=== PATIENT | female | born 1960 | race Caucasian/White ===

== ENCOUNTER 2017-03-15 07:45 | Emergency (ER) | payer OTHER ==
[2017-03-15 07:59] VITALS: BP 122/72
[2017-03-15] MEDS ORDERED: Albuterol HFA INHALER* 8 gm MDI INH ONE (08:17)
--- NOTE | 2017-03-15 08:43 | RAD ---
HISTORY: Cough COMPARISONS: None VIEWS: 4: Frontal dual-energy and lateral views of the chest. FINDINGS: CARDIOMEDIASTINAL SILHOUETTE: The cardiomediastinal silhouette is normal. MOHAMUD: The mohamud are normal. PLEURA: The costophrenic angles are sharp. No pleural abnormalities are noted. LUNG PARENCHYMA: The lungs are clear. ABDOMEN: The upper abdomen is clear. There is no subphrenic gas. BONES AND SOFT TISSUES: No bone or soft tissue abnormalities are noted. OTHER: None. IMPRESSION: NO ACTIVE CARDIOPULMONARY DISEASE.
--- NOTE | 2017-03-15 08:58 | UC ---
Flakito Vazquez Benjamin, scribed for Katerina Koo MD on 03/15/17 at 0817 . Respiratory Complaint HPI - HPI Summary HPI Summary: 56yo female c/o presents c/o cough since aprox 25 January. No chacorta fever, but hot and cold at night. + very tired. No GI Issues. + sinus pressure, can't taste very well since sx started. No rash. Cough occas productive, usually clear but occasional green phlegm. Sx started out while traveling overseas to [place]. Pt travelled to [place] from 01/25-02/08 and felt like her travel had made her sick since she has been on a plane for over 24 hours and used lots of public transportation during her time of travel. Pt also has some friends who have cats with cat dandruff. P doesnt report any rash. No known hx of asthma, and no pets at home. Pt mother recently , and she currently is cleaning out her mother's house, and as such has been exposed to lots of dirt, dust, and molds. - History of Current Complaint Chief Complaint: UCRespiratory Stated Complaint: RESP ISSUE Time Seen by Provider: 03/15/17 08:03 Hx Obtained From: Patient Hx Last Menstrual Period: Ended last week Onset/Duration: Gradual Onset, Lasting Weeks - since 01/25/17, Still Present Timing: Constant Severity Initially: Mild Severity Currently: Mild Pain Intensity: 0 Pain Scale Used: 0-10 Numeric Character: Cough: Nonproductive - Allergies/Home Medications Allergies/Adverse Reactions: Allergies Allergy/AdvReac Type Severity Reaction Status Date / Time Shellfish Allergy Allergy Hives Verified 01/26/16 09:33 Sulfa drugs Allergy Hives Uncoded 01/26/16 09:33 Home Medications: Home Medications Hzohlzx-Aukwbmnjnhmww-Xaiybozy [Excedrin Migraine 250-250-65 mg] 03/15/17 [ History] PMH/Surg Hx/FS Hx/Imm Hx Previously Healthy: Yes Respiratory History: Other Other Respiratory History: Denies Asthma. - Surgical History Surgical History: Yes Surgery Procedure, Year, and Place: Bunionectomoy - Family History Known Family History: Negative: Cardiac Disease, Hypertension, Diabetes - Social History Occupation: Retired Lives: Alone Alcohol Use: None Substance Use Type: None Smoking Status (MU): Never Smoked Tobacco Review of Systems Constitutional: Other - SEE HPI All Other Systems Reviewed And Are Negative: Yes Physical Exam Triage Information Reviewed: Yes Appearance: Well-Appearing, No Pain Distress, Well-Nourished Vital Signs: Initial Vital Signs Temp 98.5 F 03/15/17 07:51 Pulse 88 03/15/17 07:51 Resp 16 03/15/17 07:51 BP 122/72 03/15/17 07:51 Pulse Ox 97 03/15/17 07:51 Vital Signs Reviewed: Yes Eye Exam: Normal ENT Exam: Normal Neck exam: Normal Respiratory: Positive: Crackles - at the bases, Wheezing - Expiratory Cardiovascular: Positive: RRR, No Murmur, Pulses Normal. Negative: Tachycardia Abdomen Description: Positive: Nontender, No Organomegaly, Soft Bowel Sounds: Positive: Present Musculoskeletal: Positive: Strength Intact Neurological: Positive: Muscle Tone Normal Psychological: Positive: Age Appropriate Behavior Skin Exam: Normal Skin: Negative: rashes UC Diagnostic Evaluation - Laboratory O2 Sat by Pulse Oximetry: 97 - Radiology Xray Interpretation: No Acute Changes - CHEST XR: NAD. Radiology Interpretation Completed By: Radiologist Re-Evaluation - Re-Evaluation First Eval Re-Evaluation Time: 09:00 Comment: Reviewed pts imaging result with the pt. Also discussed course of treatment and disposition. Respiratory Course/Dx - Course Course Of Treatment: Reviewed pts medication and allergy lists. Blood pressure noted. Reviewed CXR and CXR report. D/w pt f/u and coa, including pcp f/u ( [facility] [place] # given). Rx albuterol, doxycycline. Questions answered to the best of my ability. - Differential Dx/Diagnosis Provider Diagnoses: Bronchitis. Wheezing Discharge - Discharge Plan Condition: Stable Disposition: HOME Prescriptions: Albuterol HFA INHALER* [Ventolin HFA Inhaler*] 1 - 2 puff INH Q4H PRN #1 mdi PRN Reason: Wheezing DOXYcycline CAP(*) [DOXYcycline 100MG CAP(*)] 100 mg PO BID #20 cap Patient Education Materials: Acute Bronchitis (ED), Bronchospasm (ED) Referrals: No Primary Care Phys,NOPCP [Primary Care Provider] - [facility] REFERRAL [Outside] Additional Instructions: Please follow up with a primary care provider if possible in the next couple weeks. Seek medical attention for worse or new problems in the meantime. Hepa filter mask if possible. Hepa filter air filter will be helpful. The documentation as recorded by the rahulibFlakito rebollar Benjamin accurately reflects the service I personally performed and the decisions made by me, Katerina Koo MD.
== END 2017-03-15 09:17 | disposition home or self-care (01) ==
LOC: UCEAST 07:45
DX: J40 Bronchitis, not specified as acute or chronic (principal); R06.2 Wheezing; Z88.2 Allergy status to sulfonamides; Z91.013 Allergy to seafood
CPT/HCPCS: 71020; 99213; A9270-GY; G0463

== ENCOUNTER → 2018-04-26 13:52 | Day surgery (SDC) | payer OTHER ==
[~2018-04-26 13:52] MED LIST: Acetaminophen TAB* 325 MG PO PRN; Buffered Lidocaine 0.9% SYRIN* 5 ML/SYR SYRINGE INTRADERM ONE; Dexamethasone IV* 4 MG/ML 1 ML (4 MG) IV SLOW PU ONE; Dexamethasone IV* 4 MG/ML 1 ML (4 MG) ONE; DiMENhydriNATE IV* 50 MG/ML VIAL IV PUSH PRN; Famotidine IV* 10 MG/ML 2 ML (20 mg) IV ONE; Famotidine IV* 10 MG/ML 2 ML (20 mg) ONE; Gelatin ADSORBABLE (OPHTH)* OPHTH.FILM ONE; Gelfoam 12-7 ADSORBABL SPONGE* 1 EA SPONGE ONE; HYDROcodone/ACETAMIN 5-325 MG* 1 TAB PO PRN; Ibuprofen TAB* 600 MG PO PRN; Lidocaine 2% EPI 1:200000 MPF*10-20 ML VIAL ONE; Lidocaine 2% PF * 5 ML VIAL ONE; Midazolam* 1 MG/ML 2 ML VIAL (2 MG) ONE; Naloxone* 0.4 MG/ML 1 ML VIAL IV PRN; Ondansetron INJ* 2 MG/ML VIAL IV PRN; Ondansetron INJ* 2 MG/ML VIAL ONE; Oxymetazoline 0.05% NASAL SPR* 15 ML BTL ONE; Phenylephrine IV* 40 MCG/ML 10 ML SYRINGE ONE; Propofol* 10 MG/ML 20 ML BTL IV PUSH ONE; Succinylcholine* 20 MG/ML 10 ML VIAL ONE; fentaNYL* 50 MCG/ML 2 ML VIAL (100 MCG VIAL) IV PRN; fentaNYL* 50 MCG/ML 2 ML VIAL (100 MCG VIAL) ONE
[2018-04-26 18:18] VITALS: BP 142/98
--- NOTE | 2018-04-27 09:03 | OP ---
DATE OF OPERATION: 04/26/18 - [facility] DATE OF : 58. SURGEON: Jhonathan Mays MD. PRE-OP DIAGNOSIS: Chronic sinusitis and nasal polyps. POST-OP DIAGNOSIS: Chronic sinusitis and nasal polyps. OPERATIVE PROCEDURE: Bilateral video endoscopic maxillary antrostomy and anterior and posterior ethmoidectomy bilaterally. BRIEF HISTORY: This 57-year-old female with chronic sinusitis, trials of nasal steroids and oral steroids with oral antibiotics were not successful. DESCRIPTION OF PROCEDURE: The patient was taken to the operating room. General anesthetic was given. The patient was intubated. Nose was decongested with Afrin- placed pledgets. Subsequently, 0-degree telescope 30-degree telescope, and other endoscopic sinus surgery instruments including the microshaver were utilized. We initially turned our attention to the right side. Large polyps were noted and it was infiltrated with 2% lidocaine with epinephrine into the uncinate region, the middle turbinate, and the lateral nasal wall and into the ethmoidal bulla area. Same was done on the opposite side. We turned our attention to the right side by removing the polyp then subsequently identifying the uncinate process peeling out anteriorly and microshaving it away. The antrum was then enlarged. Copious amounts of polypoidal mucosal abnormalities were removed in the maxillary sinus. Ethmoidectomy was carried out entering the bulla and then subsequently posteriorly through the ground lamella towards the front face of the skull and then coursing superiorly to the nasofrontal duct area and then laterally towards the lamina papyracea resecting out as many of the ethmoid cells as possible. The area was then packed with Gelfilm and Gelfoam and this was soaked with Kenalog. Then, we turned out attention to the left side. The area again at the uncinate process was peeled out. Polypoidal mucosa was removed and microshaver was used to resect out the uncinate process. The antrostomy was then further enlarged. Again, polyps within the antrum was removed. Then, we turned our attention to the ethmoidal bulla resecting it completely and then coursing through the ground lamella posteriorly along the skull base and is coursing superiorly from back to front and laterally towards the lamina papyracea on the left side. Once both sides were completely resected out adequately enough, the area was packed with Gelfilm and Gelfoam spacer, which was soaked with Kenalog. The patient was then awakened, extubated, and sent to Recovery in stable condition. Instrument and sponge counts were correct. Blood loss was minimal. Incidental note should be made to the patient and anesthesiologist, that the patient was a difficult intubation. [id number]/[facility] #: [id number] MTDD
== END | disposition home or self-care (01) ==
LOC: OR 13:52
PROVIDERS: ATTEND Otolaryngology
DX: J32.8 Other chronic sinusitis (principal); G43.909 Migraine, unspecified, not intractable, without status migrainosus
CPT/HCPCS: 88305; A9270-GY; J0330; J1100; J2250; J2405; J2704; J3010

== ENCOUNTER 2018-12-31 20:58 | Emergency (ER) | payer OTHER ==
[2018-12-31 21:11] VITALS: BP 148/83
--- NOTE | 2018-12-31 21:26 | UC ---
Knee Pain HPI - HPI Summary HPI Summary: Patient is 58 year old female, who present today to the urgent care with right knee pain after injuring it at 5 PM today. She reports that she lost balance and felt crackling sound to her knee and fell down in her garden. Denies any other injury. Was able to be her weight but it is very painful. She took ibuprofen for pain. She denies any other symptoms - History of Current Complaint Chief Complaint: UCLowerExtremity Stated Complaint: KNEE INJURY Time Seen by Provider: 12/31/18 21:04 Hx Obtained From: Patient Hx Last Menstrual Period: Ended last week Pain Intensity: 6 - Allergies/Home Medications Allergies/Adverse Reactions: Allergies Allergy/AdvReac Type Severity Reaction Status Date / Time shellfish derived Allergy Hives Verified 12/31/18 21:11 Sulfa drugs Allergy Hives Uncoded 04/26/18 14:31 PMH/Surg Hx/FS Hx/Imm Hx - Additional Past Medical History Additional PMH: Past Medical History : None Past Surgical History: No Past History of Procedure Family History : Noncontributory. Social History : No alcohol, non smoker, no drug use. Previously Healthy: Yes - Surgical History Surgical History: Yes Surgery Procedure, Year, and Place: LEFT AND RIGHT Bunionectomy - Family History Known Family History: Negative: Cardiac Disease, Hypertension, Diabetes - Social History Alcohol Use: None Substance Use Type: None Smoking Status (MU): Never Smoked Tobacco Have You Smoked in the Last Year: No Review of Systems All Other Systems Reviewed And Are Negative: Yes Constitutional: Positive: Negative Skin: Positive: Negative Eyes: Positive: Negative ENT: Positive: Negative Respiratory: Positive: Negative Cardiovascular: Positive: Negative Gastrointestinal: Positive: Negative Genitourinary: Positive: Negative Motor: Positive: Negative Neurovascular: Positive: Negative Musculoskeletal: Positive: Arthralgia - Right knee, Decreased ROM - Right knee Neurological: Positive: Negative Psychological: Positive: Negative Is Patient Immunocompromised?: No Physical Exam - Summary Physical Exam Summary: Vital Signs Reviewed: Yes A+Ox3, no distress Eyes: Conjunctiva Clear ENT: Hearing grossly normal neck: supple Respiratory: Positive: No respiratory distress, No accessory muscle use Cardiovascular: skin color reflect adequate perfusion Neurological: Positive: Alert, ambulatory without difficulty Psychological: Positive: Normal Response To Family Skin: Positive: no rash, no ecchymosis Right Knee: Gait: antalgic gait Insp/Palp: No deformity. No effusion of the right knee. There is significant tenderness to medial joint line. There is tenderness to the patellar facet Strength: Quadriceps 5/5 , No hamstring tightness. ROM: full, with pain 0-130. Special Tests: e . Patellar grind test is negative. Anterior drawer test is some laxity. Posterior drawer test is negative. Sherine test with laxity. Valgus stress test at 0 and 30 degrees flexion with pain without any laxity. varus stress test at 0 and 30 degrees flexion is negative. Carlos's test is painful. Triage Information Reviewed: Yes Vital Signs: Initial Vital Signs Temp 98.7 F 12/31/18 21: Pulse 95 12/31/18 21:03 Resp 12 12/31/18 21:03 BP 148/83 12/31/18 21: Pulse Ox 99 12/31/18 21:03 Vital Signs Reviewed: Yes Diagnostics - Radiology No standard instances Radiology Interpretation Completed By: ED Physician - X-rays of right knee:No fracture. Minimal arthritis Knee Pain Course/Dx - Course Course Of Treatment: During the visit today, we obtained x-rays of right knee : No fracture. Minimal arthritis X-rays will be read tomorrow morning by radiologist and if anything different, somebody will call you with the findings and further plan. We discussed the findings consistent with MCL strain and possibility of ACL injury cannot be completely ruled out but she does not have any effusion . Follow up with orthopedics in 2-3 days Patient expressed understanding . - Differential Dx/Diagnosis Provider Diagnosis: Right knee pain, Grade 1 injury of medial collateral ligament of right knee Discharge - Sign-Out/Discharge Documenting (check all that apply): Patient Departure All imaging exams completed and their final reports reviewed: No - Discharge Plan Condition: Stable Disposition: HOME Patient Education Materials: Knee Sprain (ED) Referrals: Jennifer Ferro MD [Primary Care Provider] - Lilian Harris MD [Medical Doctor] - Additional Instructions: Start using the knee immobilizer Ice 15 minutes at a time, 3-4 times a day Ibuprofen as needed, 600 mg up to 3 times a day with food Gentle range of motion exercises Follow up with orthopedics in 2 days. Patients blood pressure slightly high in Urgent care today , plan follow up with PCP for better control Your x-rays were done after 6 PM and no official radiology read is available at this time . X-rays will be read tomorrow morning by radiologist and if anything different, somebody will call you with the findings and further plan. Return to Urgent care / ER if symptoms get worse. - Billing Disposition and Condition Condition: STABLE Disposition: Home
--- NOTE | 2019-01-01 08:12 | UC ---
- EKG/XRAY/CT Xray Comments: wet read correct Course/Dx - Diagnoses Provider Diagnoses: Right knee pain, Grade 1 injury of medial collateral ligament of right knee Discharge - Sign-Out/Discharge Documenting (check all that apply): Post-Discharge Follow Up All imaging exams completed and their final reports reviewed: Yes - Discharge Plan Condition: Stable Disposition: HOME Patient Education Materials: Knee Sprain (ED) Referrals: Jennifer Ferro MD [Primary Care Provider] - Lilian Harris MD [Medical Doctor] - Additional Instructions: Start using the knee immobilizer Ice 15 minutes at a time, 3-4 times a day Ibuprofen as needed, 600 mg up to 3 times a day with food Gentle range of motion exercises Follow up with orthopedics in 2 days. Patients blood pressure slightly high in Urgent care today , plan follow up with PCP for better control Your x-rays were done after 6 PM and no official radiology read is available at this time . X-rays will be read tomorrow morning by radiologist and if anything different, somebody will call you with the findings and further plan. Return to Urgent care / ER if symptoms get worse. - Billing Disposition and Condition Condition: STABLE Disposition: Home
== END 2018-12-31 22:28 | disposition home or self-care (01) ==
LOC: UCEAST 20:58
DX: S83.411A Sprain of medial collateral ligament of right knee, initial encounter (principal); W19.XXXA Unspecified fall, initial encounter; Y92.007 Garden or yard of unspecified non-institutional (private) residence as the place of occurrence of the external cause
CPT/HCPCS: 99212; G0463

== ENCOUNTER → 2019-03-08 06:14 | Day surgery (SDC) | payer OTHER ==
--- NOTE | 2019-03-05 17:04 | HP ---
AMENDED REPORT NOW INCLUDES DESIGNATED COSIGNER AND DATE OF ADMISSION PREOPERATIVE HISTORY AND PHYSICAL: DATE OF ADMISSION: 03/09/19 ATTENDING PROVIDER: Dr. Harris * (DICTATED BY ZOEY WOLF) CHIEF COMPLAINT: Right knee pain. HISTORY OF PRESENT ILLNESS: This is a 58-year-old female who suffered a fall on 12/31/18. When she fell, she went sideways and felt a crack in her right knee. Since then, she has had between 2/10 and 6/10 pain in the right knee with swelling. She has tried bracing, anti-inflammatories, and rest without significant relief of her discomfort. She has tenderness and pain along the medial joint line that is increased with twisting, pivoting, and bending. She is unable to take part in her normal daily activities without severe pain. An MRI was ordered which showed contusions of the posterior tibial plateau and suspicion for a radial tear in the posterior horn of the lateral meniscus at the posterior root. She is seeking surgical intervention at this time with Dr. Harris. PAST MEDICAL HISTORY: Hypercholesterolemia. PAST SURGICAL HISTORY: Bilateral bunionectomy and sinus surgery. She denies anesthetic complications with these procedures, but says that Dr. Wick says she has a "narrow throat" when intubating. CURRENT MEDICATIONS: 1. Multivitamin daily by mouth. 2. Flaxseed oil supplement daily. ALLERGIES: SULFA DRUGS caused a rash and itching. FAMILY HISTORY: Hypertension in her father, but no cancer or diabetes. SOCIAL HISTORY: She lives alone and will be staying with a friend postoperatively for care. She is a retired investment executive. She denies tobacco, alcohol, or recreational drug use and she is normally very active. REVIEW OF SYSTEMS: Fourteen systems were reviewed with the patient today and are positive for her right knee pain, but negative for fever, chills, chest pain or shortness of breath, nausea, vomiting, headache, or dizziness. All other systems are reported negative as well as no history of DVT. PHYSICAL EXAMINATION GENERAL: She is a well-developed, well-nourished female, seated in an exam chair, in no acute distress, with appropriate affect. VITAL SIGNS: Height 60 inches, weight 165 pounds. Blood pressure 132/83, pulse is 74. HEENT: Normocephalic, atraumatic. Hearing and vision are grossly intact, with extraocular movements intact. She does wear corrective lenses. NECK: The trachea is midline and symmetrical. LUNGS: Clear to auscultation. No wheezes, rales, or rhonchi appreciated. CARDIO: Regular rate and rhythm. Normal S1, S2. No murmurs, rubs, or gallops noted. ABDOMEN: Nondistended, nontender, with bowel sounds present. GENITOURINARY: Deferred. MUSCULOSKELETAL: Right lower extremity: Skin is pink, dry, and intact without abrasions or open wounds. There is a moderate effusion of the knee with tenderness along the MCL and medial joint line. The patient performs a straight leg raise with extension at the knee to 5 degrees and flexion to 120 with pain. She has a positive Apley's and Carlos's without varus or valgus instability. Negative Sherine's, but there is some guarding. No distal edema is appreciated. She has 5/5 strength against resistance in 4 planes in the right ankle with intact sensation and a 2+ dorsalis pedis pulse. IMAGING: MRI suspicious for radial tear in the posterior horn of the lateral meniscus with clinical correlation on physical exam. ASSESSMENT: Right knee pain with meniscus tear. PLAN: Right knee arthroscopy with partial meniscectomy and possible chondroplasty, synovectomy, and plica excision with Dr. Harris. The patient's questions were answered and she would like to proceed. She will follow up postoperatively in our office and pain medications will be dispensed upon discharge. ZOEY WOLF [id number]/[facility] #: [id number] MATT
[~2019-03-08 06:14] MED LIST changes: -Acetaminophen TAB* 325 MG PO PRN; -Buffered Lidocaine 0.9% SYRIN* 5 ML/SYR SYRINGE INTRADERM ONE; +Buffered Lidocaine 1% SYRIN* 1 ML/SYRINGE INTRADERM ONE; -Dexamethasone IV* 4 MG/ML 1 ML (4 MG) IV SLOW PU ONE; -DiMENhydriNATE IV* 50 MG/ML VIAL IV PUSH PRN; +EPHEDrine (Pressors)* 50 MG/ML VIAL ONE; +EPINEPHRINE 1 MG/ML 1 ML VIAL ONE; -Gelatin ADSORBABLE (OPHTH)* OPHTH.FILM ONE; -Gelfoam 12-7 ADSORBABL SPONGE* 1 EA SPONGE ONE; -HYDROcodone/ACETAMIN 5-325 MG* 1 TAB PO PRN; -Ibuprofen TAB* 600 MG PO PRN; +KETAMINE HCL* 50 MG/ML 10 ML VIAL ONE; +Ketorolac INJ* 30 MG/ML 1 ML VIAL ONE; +Lactated Ringers 1000 ML Bag* 1,000 ML IV SCH; -Lidocaine 2% EPI 1:200000 MPF*10-20 ML VIAL ONE; +Lidocaine 2% MPF* 2 ML VIAL ONE; -Lidocaine 2% PF * 5 ML VIAL ONE; -Midazolam* 1 MG/ML 2 ML VIAL (2 MG) ONE; +Midazolam* 1 MG/ML 5 ML VIAL (5 MG) ONE; -Oxymetazoline 0.05% NASAL SPR* 15 ML BTL ONE; -Phenylephrine IV* 40 MCG/ML 10 ML SYRINGE ONE; -Propofol* 10 MG/ML 20 ML BTL IV PUSH ONE; +Propofol* 10 MG/ML 20 ML BTL ONE; +ROPIVACAINE 5 MG/ML 30 ML BTL (0.5%) ONE; -Succinylcholine* 20 MG/ML 10 ML VIAL ONE; +ceFAZolin 2 GM in NS PREMIX(*) 2 GM/100 ML BAG IVPB ONE; +methylPREDNISolone ACETATE 80* 80 MG/ML 1 ML VIAL ONE
[2019-03-08 11:02] VITALS: BP 140/85
--- NOTE | 2019-03-09 03:33 | OP ---
DATE OF OPERATION: 03/08/[address] - [facility] DATE OF : 58 ATTENDING SURGEON: Lilian Harris MD TASTE TESTER: ZOEY Manuel ANESTHESIOLOGIST: Dr. Pearce. ANESTHESIA: General. PRE-OP DIAGNOSIS: Right knee medial and lateral meniscal tears. POST-OP DIAGNOSES: Right knee lateral and medial meniscal tears, high-grade tear of the anterior cruciate ligament, mygp-gj-[id number] degenerative changes, anterior synovitis. OPERATIVE PROCEDURE: Right knee arthroscopy with partial medial meniscectomy, partial lateral meniscectomy, anterior synovectomy. ESTIMATED BLOOD LOSS: Less than 25 cc. SPECIMEN: None. COMPLICATIONS: None. BRIEF HISTORY/INDICATION: Ms. Zamudio is a 58-year-old female who had a traumatic fall on 12/31/18. She had severe right knee pain, swelling, and mechanical symptoms and feelings of instability. MRI confirmed a high-grade tear of the ACL as well as low-grade tears of the PCL, MCL, and LCL. Both medial and meniscal tears were noted. The patient went on to do well with physical therapy and strengthening. She continued to have mechanical symptoms. She was given different surgical options. She did not wish to proceed with ACL reconstruction, but she did wish to proceed with arthroscopy and partial meniscectomy. Informed consent was obtained from the patient. She understood the risks of surgery included, but were not limited to bleeding, infection, damage to nearby structures, continued pain, need for further surgery, re-tear of the meniscus, progression of arthritis, stroke, heart attack, blood clot, and . She wishes to proceed. INTRAOPERATIVE FINDINGS: Intraoperatively, the patient was noted to have a radial tear in the posterior roots of the medial meniscus, she had a significant displaced parrot beak type tear of the lateral meniscus. This involved the majority of the body of the meniscus. She had some grade 2 and 3 Outerbridge cartilage changes in the lateral and patellofemoral compartments. She had a significant amount of anterior synovitis. She had a high-grade tear of the ACL with less than 25% intact. DESCRIPTION OF PROCEDURE: Ms. Zamudio was identified in the preanesthesia unit. Her right lower extremity was marked as the correct operative side. Informed consent was signed and placed in the chart. The patient was taken to the operating room and placed under general anesthesia without difficulty. Right lower extremity was prepped and draped in the usual sterile fashion. Preop time-out was made to correctly identify the patient, side and site. Appropriate perioperative antibiotics were given within 1 hour of incision. A 0.5 cm standard anterolateral portal incision was made with a 10-blade and carried down to the capsule. Trocar was introduced. As soon as the light and water sources were turned on, there was immediate visualization of the suprapatellar pouch. A tour of the knee joint was performed. Suprapatellar pouch had no obvious abnormality. Patellofemoral compartment had some minimal degenerative changes with cartilage fissuring but no exposed subchondral bone. Medial gutter showed no loose body or plica. Medial compartment showed some minimal degenerative changes. There was a radial tear along the posterior horn of the medial meniscus , which was evident. There was a significant amount of the anterior synovitis noted. The ACL had an obvious high grade tear, but there were some fibers intact. The knee was placed in a [id number]-dn-ubkt position. There was a parrot beak type tear of the lateral meniscus body, which was displaced into the joint space. There was some grade 2 and 3 Outerbridge cartilage changes with cartilage fissuring of the tibial plateau. There was no large area of exposed subchondral bone. Lateral gutter showed no loose body or plica. Under direct visualization, a medial portal incision was made. A probe was introduced. A second tour of the knee joint was performed. No additional findings were noted. The ACL was noted to have approximately 25% intact fibers. Shaver and radiofrequency ablation wand were used to perform anterior synovectomy. A portion of the ACL stump was excised. Straight biter and shaver were then used to perform partial medial meniscectomy. This was performed along the posterior root of the medial meniscus. This was in a white- red zone. A smooth border of the meniscus was obtained. Further probing of the medial meniscus showed no additional tears. The knee was placed in a [id number]-gt-cnvy position. Large displaced parrot beak type tear of the lateral meniscus was excised using shaver and straight biter. Smooth border of the lateral meniscus was obtained. Further probing of the meniscus showed no additional tears. Radiofrequency ablation wand was used to further smooth the edge of the meniscus. The knee was copiously irrigated with sterile saline. All instruments were removed. Incisions were closed with 3-0 nylon suture. Intra-articular injection of 80 mg of Depo-Medrol and 6 cc of 0.5% ropivacaine was placed in the knee joint. The patient's incisions were covered with Xeroform, 4x4s, and Webril. Sina wrap and cold pack were placed over this. The patient's anesthesia was reversed without difficulty. She was taken to the PACU in stable condition. Intended weightbearing will be weightbearing as tolerated. Intended DVT prophylaxis will be aspirin. She will follow up in 2 weeks' time for a recheck and suture removal. [id number]/[facility] #: [id number] [facility]ITAL[facility]arad
== END | disposition home or self-care (01) ==
LOC: OR 06:14
PROVIDERS: ATTEND Orthopaedic Surgery Adult Reconstructive Orthopaedic Surgery
DX: S83.241A Other tear of medial meniscus, current injury, right knee, initial encounter (principal); S83.281A Other tear of lateral meniscus, current injury, right knee, initial encounter; Z88.2 Allergy status to sulfonamides; S83.511A Sprain of anterior cruciate ligament of right knee, initial encounter; W18.30XA Fall on same level, unspecified, initial encounter; Y93.89 Activity, other specified; Y92.89 Other specified places as the place of occurrence of the external cause; M65.9 Synovitis and tenosynovitis, unspecified
CPT/HCPCS: J0690; J1040; J1100; J1885; J2250; J2405; J2704; J2795; J3010

== ENCOUNTER 2019-04-08 09:58 | Emergency (ER) | payer OTHER ==
[2019-04-08 10:15] VITALS: BP 121/78
--- NOTE | 2019-04-08 10:37 | UC ---
Upper Extremity HPI - HPI Summary HPI Summary: patient tripped and fell outside onto out stretched hands 4 days ago and injured L elbow. Can move entire L arm but painful at times. also sees black and blue on elbow - History of Current Complaint Chief Complaint: UCUpperExtremity Stated Complaint: ELBOW/LOWER ARM INJURY Time Seen by Provider: 04/08/19 10:26 Hx Obtained From: Patient Hx Last Menstrual Period: Ended last week ?: No Onset/Duration: Sudden Onset Severity Initially: Moderate Severity Currently: Moderate Pain Intensity: 4 Character: Aching, Stiffness Aggravating Factor(s): Movement Alleviating Factor(s): Rest Associated Signs And Symptoms: Positive: Swelling, Bruising - Allergies/Home Medications Allergies/Adverse Reactions: Allergies Allergy/AdvReac Type Severity Reaction Status Date / Time shellfish derived Allergy Hives Verified 04/08/19 10:15 Sulfa drugs Allergy Hives Uncoded 03/08/19 07:37 PMH/Surg Hx/FS Hx/Imm Hx Previously Healthy: Yes - Surgical History Surgical History: Yes Surgery Procedure, Year, and Place: LEFT AND RIGHT Bunionectomy. 04/2018 SINUS SURGERY-SINUS AND POLYP - Family History Known Family History: Negative: Cardiac Disease, Hypertension, Diabetes - Social History Occupation: Retired Lives: Alone Alcohol Use: Rare Substance Use Type: None Smoking Status (MU): Never Smoked Tobacco Have You Smoked in the Last Year: No Review of Systems All Other Systems Reviewed And Are Negative: Yes Constitutional: Positive: Negative Skin: Positive: Bruising Respiratory: Positive: Negative Cardiovascular: Positive: Negative Musculoskeletal: Positive: Other: - elbow [pain. Negative: Decreased ROM Neurological: Positive: Negative Psychological: Positive: Negative Is Patient Immunocompromised?: No Physical Exam Triage Information Reviewed: Yes Appearance: Well-Appearing, No Pain Distress, Obese Vital Signs: Initial Vital Signs Temp 98.8 F 04/08/19 10:09 Pulse 90 04/08/19 10:09 Resp 12 04/08/19 10:09 BP 121/78 04/08/19 10:09 Pulse Ox 98 04/08/19 10:09 Vital Signs Reviewed: Yes Respiratory Exam: Normal Respiratory: Positive: Lungs clear Cardiovascular Exam: Normal Cardiovascular: Positive: RRR Musculoskeletal: Positive: Other: - demonstrates full ROM and strength L upper extremity. ecchymosis L elbow and some swelling. point tenderness distal Humerus near elbow, no wrist pain Neurological Exam: Normal Psychological Exam: Normal Skin Exam: Other - bruising L elbow Diagnostics - Radiology No standard instances Radiology Interpretation Completed By: Radiologist - IMPRESSION: #. Given presence of joint effusion, soft tissue swelling, and preceding injury an occult fracture is not excluded. In the adult age group an occult radial head fracture would be most likely. Upper Extremity Course/Dx - Differential Dx/Diagnosis Differential Diagnosis/HQI/PQRI: Contusion, Fracture (Closed), Strain Provider Diagnosis: Occult fracture of elbow Discharge ED - Sign-Out/Discharge Documenting (check all that apply): Patient Departure All imaging exams completed and their final reports reviewed: Yes - IMPRESSION: #. Given presence of joint effusion, soft tissue swelling, and preceding injury an occult fracture is not excluded. In the adult age group an occult radial head fracture would be most likely. - Discharge Plan Condition: Good Disposition: HOME Patient Education Materials: Elbow Fracture (ED) Referrals: Jennifer Ferro MD [Primary Care Provider] - Reagan Steele MD [Medical Doctor] - Additional Instructions: use sling as directed until seen by orthopedics call ortho tomorrow to set up appointment for further evaluation Tylenol or ibuprofen as directed for pain - Billing Disposition and Condition Condition: GOOD Disposition: Home
== END 2019-04-08 11:44 | disposition home or self-care (01) ==
LOC: UCEAST 09:58
DX: S52.122A Displaced fracture of head of left radius, initial encounter for closed fracture (principal); W01.0XXA Fall on same level from slipping, tripping and stumbling without subsequent striking against object, initial encounter; Y92.9 Unspecified place or not applicable; Z88.2 Allergy status to sulfonamides
CPT/HCPCS: 99212; G0463